=== PATIENT | male | born 1975 | race Caucasian/White ===

== ENCOUNTER 2019-01-28 09:38 | Emergency (ER) | payer MEDICAID ==
[~2019-01-28] VITALS: Ht 177.8 cm; Wt 97.7 kg
[~2019-01-28 09:38] MED LIST: ASPI-128; OMEP40CA37 PO
[2019-01-28 09:47] VITALS: BP 121/67
== END 2019-01-28 10:27 | disposition home or self-care (01) ==
LOC: ER 09:39
DX: M25.521 Pain in right elbow (principal); K21.9 Gastro-esophageal reflux disease without esophagitis; Z88.0 Allergy status to penicillin; Z79.82 Long term (current) use of aspirin; Z79.899 Other long term (current) drug therapy; X50.9XXA Other and unspecified overexertion or strenuous movements or postures, initial encounter; Y93.89 Activity, other specified; Y92.89 Other specified places as the place of occurrence of the external cause; Y99.8 Other external cause status
CPT/HCPCS: 99282

== ENCOUNTER 2019-07-28 05:16 | Emergency (ER) | payer MEDICAID ==
[~2019-07-28] VITALS: Ht 175.3 cm; Wt 100.5 kg
[~2019-07-28 05:16] MED LIST changes: +OMEP40CA13 PO; -OMEP40CA37 PO
[2019-07-28 05:35] VITALS: BP 162/100
[2019-07-28] MEDS ORDERED: acetaminophen 325mg tablet PO ONE (05:45)
[2019-07-28] MEDS ORDERED: proCHLORperazine 10 MG/2 ml inj IV ONE (05:45)
[2019-07-28] MEDS ORDERED: diphenhydrAMINE 50 mg/ml inj IV ONE (05:45)
[2019-07-28] MEDS ORDERED: ketorolac trometh. 30mg/ml inj. IV ONE (05:45)
[2019-07-28] MEDS ORDERED: normal saline 1000ml 1,000 ML IV ONE (05:45)
== END 2019-07-28 06:48 | disposition home or self-care (01) ==
LOC: ER 05:17
DX: G43.909 Migraine, unspecified, not intractable, without status migrainosus (principal); G47.30 Sleep apnea, unspecified; K21.9 Gastro-esophageal reflux disease without esophagitis; Z88.0 Allergy status to penicillin; Z79.899 Other long term (current) drug therapy
CPT/HCPCS: 96374; 96375; 99283; J0780; J1200; J1885; J7030

== ENCOUNTER 2020-09-27 17:26 | Emergency (ER) | payer MEDICAID ==
[~2020-09-27] VITALS: Ht 172.7 cm; Wt 102.3 kg
[2020-09-27 18:38] LABS: BASOPHILS # (AUTO) 0.1 X10'3 (0-0.2); BASOPHILS % (AUTO) 1.3 % (0-1); EOSINOPHILS # (AUTO) 0.1 X10'3 (0-0.9); EOSINOPHILS % (AUTO) 1.6 % (0-6); HEMOGLOBIN 15.6 g/dl (14.0-17.9); LYMPHOCYTES % (AUTO) 46.2 % (21-51); MEAN CORPUSCULAR HEMOGLOBIN 30.8 PG (27.0-31.0); MEAN CORPUSCULAR HGB CONC 34.7 g/dL (33.0-36.5); MEAN CORPUSCULAR VOLUME 88.9 FL (78-98); MEAN PLATELET VOLUME 7.4 FL (7.4-10.4); MONOCYTES # (AUTO) 0.5 X10'3 (0-0.9); NEUTROPHILS # (AUTO) 2.8 X10'3 (1.8-7.7); NEUTROPHILS % (AUTO) 43.9 % (42-75); PLATELET COUNT 330 X10'3 (140-440); RED BLOOD COUNT 5.06 X10'6 (4.70-6.10); RED CELL DISTRIBUTION WIDTH 12.8 % (11.5-14.5); WHITE BLOOD COUNT 6.4 X10'3 (4.5-11.0)
[2020-09-27 18:55] LABS: ALANINE AMINOTRANSFERASE 86 U/L (12-78); ALBUMIN/GLOBULIN RATIO 1.1 (1.1-1.5); ALKALINE PHOSPHATASE 102 IU/L (46-116); ANION GAP 9 (8-16); ASPARTATE AMINO TRANSFERASE 25 U/L (10-37); BILIRUBIN,TOTAL 0.2 MG/DL (0.1-1.0); BLOOD UREA NITROGEN 18 MG/DL (7-18); BUN/CREATININE RATIO 22.2 (5.4-32.0); CALCIUM 8.2 MG/DL (8.5-10.1); CHLORIDE 105 MMOL/L (99-107); CREATININE 0.81 MG/DL (0.60-1.10); GLUCOSE 103 MG/DL (70-104); POTASSIUM 3.7 MMOL/L (3.5-5.1); SODIUM 143 MMOL/L (135-145); TOTAL PROTEIN 7.6 G/DL (6.4-8.2); eGFR > 90 ML/MIN
[2020-09-27 19:15] VITALS: BP 134/93
== END 2020-09-27 19:16 | disposition home or self-care (01) ==
LOC: ER 17:27
DX: R07.89 Other chest pain (principal); K21.9 Gastro-esophageal reflux disease without esophagitis; G47.30 Sleep apnea, unspecified; R06.89 Other abnormalities of breathing
CPT/HCPCS: 36415; 71045; 80053; 83880; 84484; 85025; 93005; 99285

== ENCOUNTER 2025-03-22 11:42 | Emergency (ER) | payer MEDICAID ==
[~2025-03-22] VITALS: Ht 172.7 cm; Wt 89.0 kg
[~2025-03-22 11:42] MED LIST changes: -OMEP40CA13 PO; +OMEP40CA21 PO
[2025-03-22 11:47] VITALS: BP 134/89; PULSE 63; RESP 16; TEMP 98; O2SAT 97
[2025-03-22] MEDS ORDERED: NAPR-56 PO (12:51)
--- NOTE | 2025-03-22 12:52 | Physician Documentation ---
History of Present Illness ~ Chief Complaint: Rib pain Stated Complaint: RIB PAIN Time Seen by MD: 12:19 OK to notify your PCP?: Yes Primary Medical Doctor: Emma peña Source: patient Mode of Arrival: POV Exam Limitations: no limitations HPI 49-YEAR-OLD MALE WITH CHIEF COMPLAINT PAIN ON HIS LEFT UPPER ABDOMINAL AREA JUST UNDER LEFT RIBCAGE. SYMPTOMS STARTED ABOUT A MONTH AGO. 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 PAIN HAS NOT GOTTEN BETTER WHICH IS WHY HE DECIDED TO COME TO THE ER TODAY. PAIN COMES AND GOES HE IS NOT SURE WHAT WILL TRIGGER THE PAIN OR WILL MAKE THE PAIN BETTER OR RESOLVED BUT HE STATES SOMETIMES WHEN HE HAS A PAIN WHEN HE PUSHES ON THE AREA THAT IT FEELS BETTER. NO NAUSEA, VOMITING, CHANGE IN BOWELS, PAIN WITH RESPIRATIONS, COUGH, SHORTNESS OF BREATH, PAIN IN NECK OR MID BACK. Tetanus within 5 Years?: No Allergies: Coded Allergies: Penicillins (Unverified Allergy, Unknown, UNKNOWN, STATES WHEN HE WAS BABY, 07/28/19) Active Prescriptions See Medication Reconciliation Form. Medication Reconciliation Scheduled Naproxen (Naproxen), 1 TAB PO Q12H Omeprazole (Prilosec), 1 CAP PO DAILY Miscellaneous Medications Aspirin/Acetaminophen/Caffeine (Excedrin Caplet), (Reported) Past Medical History Past Medical History: Headache, Sleep Apnea, GERD Past Surgical History: no surgical history Alcohol Use: None Drug Use: none Lives with: Family Lives In: Home Occupation: employed Review of Systems All Other Systems at this time: Reviewed and Negative Physical Exam Vital Signs: Temperature: 98.0, Source: Temporal, Heart Rate: 63, Respiratory Rate: 16, BP: 134/89, Pulse Oximetry: 97, Weight: 89.000 Oxygen Flow Rate: 0 Physical Exam GENERAL APPEARANCE: ALERT, WD/WN. NAD. HEENT: NCAT, PERRL, EOMI. NECK: SUPPLE, TRACHEA MIDLINE. CARDIOVASCULAR: RRR. NO M/R/G. LUNGS: CTAB. BREATHING UNLABORED EXTREMITIES: NORMAL INSPECTION. NO EDEMA. ABDOMEN: TENDERNESS OVER THE LEFT PROXIMAL ABDOMINAL WALL, NO MASSES, NORMAL INSPECTION. NTTP OVER THE RIB CAGE. SKIN: WARM/DRY, NORMAL COLOR NEUROLOGICAL: ALERT AND ORIENTED X4, NORMAL GAIT. PSYCHIATRIC: AFFECT CONGRUENT WITH MOOD. Progress Results/Orders Results/Orders Vital Signs 03/22/25 11:47 Temp 98.0 Pulse 63 Resp 16 B/P (MAP) 134/89 Pulse Ox 97 O2 Flow Rate 0 Medical Decision Making Differential Dx:Considerations: Include: Chest wall contusion, Flail chest, Myocardial contusion, Pneumothorax, Pulmonary contusion, Rib fracture, Renal contusion, Splenic fracture, Tension pneumothorax, Other Departure Time of Disposition: 12:52 Disposition: 01 HOME / SELF CARE / HOMELESS Impression: Primary Impression: Abdominal muscle pain Condition: Stable Discharge Instructions: Muscle Pain, Adult Additional Instructions: PAIN IS MOST CONSISTENT WITH THE PSOAS MUSCLE STRAIN VERSE ANOTHER MUSCULOSKELETAL SOURCE THUS I RECOMMEND NAPROXEN 500 MG TWICE A DAY FOR 14 DAYS IF DOES NOT RESOLVE FOLLOW UP WITH THE PRIMARY CARE PROVIDER FOR FURTHER INVESTIGATION Referrals: NO PRIMARY CARE PROVIDER (PCP) Prescriptions Naproxen (Naproxen) 500 Mg Tablet 1 TAB PO Q12H, #24 TAB Prov: ADELE SPARKS 03/22/25 Education Educated: Patient Educated regarding: diagnosis, treatment, need for follow up Signature Scribe Signature: X Attestation: ADELE COFFEY Mar 22, 2025 12:52
== END 2025-03-22 12:57 | disposition home or self-care (01) ==
LOC: ER 11:43
DX: R10.12 Left upper quadrant pain (principal); R07.81 Pleurodynia; G47.30 Sleep apnea, unspecified; Z88.0 Allergy status to penicillin; Z79.899 Other long term (current) drug therapy
CPT/HCPCS: 99282